=== PATIENT | female | born 1960 | race African-American/Black ===

== ENCOUNTER 2017-04-04 11:23 | Emergency (ER) | payer OTHER, MEDICAID ==
[~2017-04-04] VITALS: Ht 172.7 cm; Wt 87.1 kg
[~2017-04-04 11:23] MED LIST: HYDROCODONE PO; ZOLP10TA; ZOLP10TA6; [UNRECOGNIZED DRUG - CODE]
[2017-04-04 11:57] VITALS: BP 127/91
[2017-04-04] MEDS ORDERED: ONDANSETRON HCL 4 MG/2 ML VIAL ONE (12:12)
[2017-04-04] MEDS ORDERED: MORPHINE SULFATE 4 MG/ML SYRG IM ONE (12:15)
[2017-04-04] MEDS ORDERED: ONDANSETRON HCL 4 MG/2 ML VIAL IM ONE (12:15)
== END 2017-04-04 12:33 | disposition home or self-care (01) ==
LOC: ER 11:29
DX: G89.29 Other chronic pain (principal); M54.5 Low back pain; F17.210 Nicotine dependence, cigarettes, uncomplicated
CPT/HCPCS: 96372; 99284; J2270; J2405

== ENCOUNTER 2019-04-27 23:47 | Emergency (ER) | payer OTHER, MEDICAID ==
[~2019-04-27] VITALS: Ht 172.7 cm; Wt 92.1 kg
[2019-04-28 01:00] VITALS: BP 136/95
[2019-04-28] MEDS ORDERED: ONDANSETRON ODT 4 MG TAB PO ONE (03:00)
[2019-04-28] MEDS ORDERED: MEPERIDINE HCL (50 MG/ML) 1 ML VIAL IM ONE (03:00)
[2019-04-28] MEDS ORDERED: MEPERIDINE HCL (25 MG/ML) 1ML VIAL ONE (03:08)
== END 2019-04-28 03:33 | disposition home or self-care (01) ==
LOC: ER 23:47
DX: G89.29 Other chronic pain (principal); M54.9 Dorsalgia, unspecified; F17.210 Nicotine dependence, cigarettes, uncomplicated
CPT/HCPCS: 96372; 99283; J2175; Q0162

== ENCOUNTER 2024-12-23 20:54 | Emergency (ER) | payer OTHER, MEDICAID | END 2024-12-23 22:23 | disposition left against medical advice (07) | LOC: ER 20:54 | DX: M54.50 Low back pain, unspecified (principal); Z53.21 Procedure and treatment not carried out due to patient leaving prior to being seen by health care provider ==